=== PATIENT | male | born 2000 | race Caucasian/White ===

== ENCOUNTER 2019-06-16 14:19 | Emergency (ER) | payer OTHER ==
[~2019-06-16] VITALS: Ht 177.8 cm; Wt 81.2 kg
[2019-06-16 14:31] VITALS: Ht 177.8 cm; Wt 81.2 kg
[2019-06-16 17:05] VITALS: BP 130/71
== END 2019-06-16 17:05 | disposition home or self-care (01) ==
LOC: ED 14:19
DX: S61.532A Puncture wound without foreign body of left wrist, initial encounter (principal); W31.2XXA Contact with powered woodworking and forming machines, initial encounter; Y93.89 Activity, other specified; Y92.89 Other specified places as the place of occurrence of the external cause; Y99.8 Other external cause status
CPT/HCPCS: 90715